=== PATIENT | female | born 1935 | race Caucasian/White ===

== ENCOUNTER 2020-06-18 16:38 | Inpatient (IN) | payer MEDICARE, OTHER ==
[~2020-06-18] VITALS: Ht 160 cm; Wt 74.4 kg
[2020-06-18 18:45] VITALS: BP 154/65
[2020-06-18 21:05] LABS: HEMATOCRIT 38.4 % (37.0-47.0); MCH 30.8 pg (26.0-34.0); MCHC 33.7 g/dL (28.0-37.0); MCV 91.1 fL (80.0-100.0); MPV 8.5 fl. (7.2-11.1); RBC 4.21 mil/uL (4.20-5.00); WBC 8.7 thou/uL (4.0-11.0)
[2020-06-18 21:18] LABS: CALCIUM 9.8 mg/dL (8.5-10.1); CREATININE 1.4 mg/dL (0.6-1.3); MAGNESIUM 2.1 mg/dL (1.8-2.4); POTASSIUM 4.1 mmol/L (3.5-5.1)
[2020-06-18 21:24] LABS: ALBUMIN 3.2 g/dL (3.4-5.0); CREATININE 1.4 mg/dL (0.6-1.3); MAGNESIUM 2.1 mg/dL (1.8-2.4); POTASSIUM 4.1 mmol/L (3.5-5.1); TOTAL BILIRUBIN 0.6 mg/dL (<0.1-1.0)
[2020-06-19 01:50] VITALS: BP 172/69
[2020-06-19 07:16] VITALS: BP 172/69
[2020-06-19 10:28] VITALS: BP 144/72
[2020-06-19] MEDS ORDERED: TIMOLOL MALEATE5 M2 RT. EYE (11:55)
[2020-06-19 15:51] VITALS: BP 157/75
[2020-06-19 20:00] VITALS: BP 126/59
[2020-06-20 00:10] VITALS: BP 116/90
[2020-06-20 04:11] LABS: HEMATOCRIT 36.7 % (37.0-47.0); HEMOGLOBIN 12.2 gm/dL (12.0-15.0); MCH 30.5 pg (26.0-34.0); MCHC 33.3 g/dL (28.0-37.0); MCV 91.5 fL (80.0-100.0); RBC 4.01 mil/uL (4.20-5.00); WBC 8.2 thou/uL (4.0-11.0)
[2020-06-20 04:15] VITALS: BP 138/68
[2020-06-20 04:34] LABS: ALBUMIN 2.8 g/dL (3.4-5.0); CREATININE 1.4 mg/dL (0.6-1.3); MAGNESIUM 2.2 mg/dL (1.8-2.4); POTASSIUM 3.8 mmol/L (3.5-5.1); TOTAL BILIRUBIN 0.5 mg/dL (<0.1-1.0); TOTAL PROTEIN 6.7 g/dL (6.4-8.2)
[2020-06-20 07:44] VITALS: BP 135/69
[2020-06-20 16:09] VITALS: BP 128/70
[2020-06-20 19:45] VITALS: BP 124/54
[2020-06-21 00:34] VITALS: BP 154/83
[2020-06-21 03:05] LABS: GLYCOHEMOGLOBIN (HGB A1C) 5.6 % (4.8-5.6)
[2020-06-21 04:00] VITALS: BP 148/75
[2020-06-21 06:24] LABS: URINE BILIRUBIN NEGATIVE (Negative); URINE BLOOD NEGATIVE (Negative); URINE CLARITY CLEAR; URINE COLOR YELLOW; URINE GLUCOSE-RANDOM NEGATIVE (Negative); URINE KETONES NEGATIVE (Negative); URINE LEUKOCYTES-REFLEX NEGATIVE (Negative); URINE NITRITE-REFLEX NEGATIVE (Negative); URINE PROTEIN NEGATIVE (Negative); URINE SPECIFIC GRAVITY 1.015 (1.005-1.030); URINE UROBILINOGEN 0.2 E.U./dl (0.2-1.0)
[2020-06-21 08:20] VITALS: BP 135/61
[2020-06-21 12:00] VITALS: BP 139/64
[2020-06-21 16:00] VITALS: BP 156/89
[2020-06-21 21:20] VITALS: BP 150/75
[2020-06-21] MEDS ORDERED: HYDROCODON-ACE1 EAC7 PO (21:20)
[2020-06-21] MEDS ORDERED: ELIQUIS5 MG PO (21:20)
[2020-06-22 00:56] VITALS: BP 152/85
[2020-06-22 04:43] VITALS: BP 148/80
[2020-06-22 07:40] VITALS: BP 157/79
[2020-06-22 09:06] VITALS: BP 157/79
[2020-06-22 12:00] VITALS: BP 163/67
--- NOTE | 2020-06-30 21:54 | OP ---
[address] [address] OPERATIVE REPORT Name: MIKAL YOU Room: [address] [place] .R.#: [id number] Admission: 06/18/20 Attend Phys: Neli Barragan Discharge: 06/22/20 Date of : 37 Report #: [id number] THIS REPORT FOR: //name// cc: FAM - Family physician unknown FAM - Family physician unknown ~ CC: MARLEY unknown Brandon Rodriguez DATE OF SERVICE: 06/19/2020 PREOPERATIVE DIAGNOSIS: Left valgus impacted subcapital femoral neck fracture. POSTOPERATIVE DIAGNOSIS: Left valgus impacted subcapital femoral neck fracture. PROCEDURE: In situ pinning, left femoral neck fracture. SURGEON: Jeevan Delgado DO ASSISTANTS: 1. Nile Kline DO 2. David Beltran DO 3. David brown DO ANESTHESIA: General. ANTIBIOTICS: Ancef. IV FLUIDS: 500 mL lactated Ringer's. BLOOD LOSS: 10 mL. COMPLICATIONS: None. SPECIMENS: None. DRAINS: None. CONDITION OF PATIENT: Stable to PACU. IMPLANTS: A 6.5 partially threaded cannulated screws. The most inferior screw being a 32 mm, the superior 2 screws, 16 mm. They were appropriately sized. INDICATIONS FOR PROCEDURE: The patient was transferred to [facility]. Unfortunately, this fall happened approximately a couple of days ago. Therefore, the window of appropriate timing for surgery had already been lapsed by the time she was transferred to our center. We made her first start case, [facility] [address] [place] [address] OPERATIVE REPORT Name: MIKAL YOU Room: [address] [place] M.R.#: [id number] Admission: 06/18/20 Attend Phys: Neli Barragan Discharge: 06/22/20 Date of : 37 Report #: [id number] got surgical clearance and once given that clearance, proceeded to surgery. We had reviewed the plan of surgery and risks and complications. Consent was given. DESCRIPTION OF PROCEDURE: I marked the left lower extremity in the presence of operative team members. Everyone agreed this was correct. She was taken to the operative suite. General anesthetic administered, transferred to the operating table in supine position, well-padded and secured. X-rays were brought in and it was confirmed to be a valgus impacted stable femoral neck fracture. In situ pinning was still indicated. The left lower extremity was then sterilely prepped and draped in standard fashion. Timeout was performed indicating correct patient, procedure, site, antibiotics, and that implants were present and sterile. All team members agreed. X-rays show marked out skin. We then percutaneously inserted the first wire for the inferior screw placement and advanced this on multiplanar C-arm imaging in its appropriate position. Same was performed for the top 2 wires. We then overdrilled the near cortex, measured, and placed. The first screw being the inferior screw 32 mm threads, had excellent purchase. Same was performed for the top 2 being 16 mm threads and they had excellent purchase as well. Final images showed excellent placement of hardware contained within the femoral neck and head, removed wires, saved images, dismissed C-arm, irrigated thoroughly with normal saline, closed with 2-0 Monocryl and then Dermabond glue over the skin. Debriefing performed confirming procedure, blood loss, and that all counts were correct and final. All team members agreed. Sterile silver impregnated dressing applied. She was extubated and taken to PACU stable. POSTOPERATIVE COURSE AND EVALUATION: I spoke with her and addressed questions to stated satisfaction. He was thankful for my time and efforts. She was resting in PACU with stable vital signs, pain controlled, neurovascularly intact. PACU films showed stable fixation and reduction. Weightbear as tolerated. PT/OT, DVT prophylaxis will be pharmacologic with Eliquis and mechanical. Case management to help with discharge planning. COVID protocol followed at all times. Call anytime with questions or concerns. <ELECTRONICALLY SIGNED> By: Jeevan Delgado DO 06/30/20 [id number] Delgado DO /nt
== END 2020-06-22 17:42 | DRG 481 ==
LOC: M.ORTHSURG 16:38
PROVIDERS: Internal Medicine; ADMIT Internal Medicine; ATTEND Internal Medicine
PROC: 0QH734Z Insertion of Internal Fixation Device into Left Upper Femur, Percutaneous Approach (ICD-10-PCS; principal; 2020-06-19)
DX: S72.012A Unspecified intracapsular fracture of left femur, initial encounter for closed fracture (principal); E44.1 Mild protein-calorie malnutrition; N17.9 Acute kidney failure, unspecified; W19.XXXA Unspecified fall, initial encounter; Z20.828 Contact with and (suspected) exposure to other viral communicable diseases; N18.30 Chronic kidney disease, stage 3 unspecified; Z91.040 Latex allergy status; Z85.528 Personal history of other malignant neoplasm of kidney; Y93.89 Activity, other specified; Y92.89 Other specified places as the place of occurrence of the external cause; Y99.8 Other external cause status; Z86.12 Personal history of poliomyelitis; Z68.29 Body mass index [BMI] 29.0-29.9, adult